=== PATIENT | male | born 1940 | race Caucasian/White ===

== ENCOUNTER 2017-08-22 14:30 | Outpatient (RCR) | payer MEDICARE, BC ==
[~2017-08-22 14:30] MED LIST: ALLO100T70 PO; ASPI-1121 PO; ATOR20TA22 PO; BAKING SODA PO; BUM2 PO; BUME1TAB19 PO; CA C1TAB6 PO; CALC-500 PO; CALC0.2522 PO; DAR100 PO; DOCU-416 PO; FURO-47 PO; GLUC-255 PO; HYDR-4305 PO; IRBE300T11 PO; LOR5/325 PO; MULT-1 PO; NIFE20CA8 PO; OXYB5TAB86 PO; OXYGENHOME INH; PER PO; POTA8TAB45 PO; SODI650T7 PO; ZOLP-350 PO
[2017-08-28] MEDS ORDERED: ATOR20TA65 PO (11:46)
[2017-09-07] MEDS ORDERED: POTA-53 PO (10:19)
[2017-09-07] MEDS ORDERED: DICL100G39 TOP (10:19)
[2017-09-07] MEDS ORDERED: DOCU250C8 PO (10:19)
[2017-09-13] MEDS ORDERED: ZOLP-1 PO (11:15)
== END 2017-09-17 ==
LOC: SPU 14:30
PROVIDERS: ATTEND Internal Medicine
DX: N30.80 Other cystitis without hematuria (principal); N17.9 Acute kidney failure, unspecified
CPT/HCPCS: 51702; A4338

== ENCOUNTER → 2017-09-07 | Outpatient (CLI) | payer MEDICARE, BC ==
[~2017-09-07] MED LIST changes: +ATOR20TA65 PO; +DICL100G39 TOP; +DOCU250C8 PO; +POTA-53 PO
== END ==
LOC: LAB 11:27
PROVIDERS: ATTEND Emergency Medicine
DX: Z12.5 Encounter for screening for malignant neoplasm of prostate (principal); D53.9 Nutritional anemia, unspecified; N18.5 Chronic kidney disease, stage 5
CPT/HCPCS: 36415; 82607; 82746; G0103; 82040; 82247; 82310; 82374; 82435; 82465; 82565; 82947; 83718; 84075; 84132; 84153; 84155; 84295; 84450; 84460; 84478; 84520

== ENCOUNTER → 2017-10-05 | Outpatient (CLI) | payer MEDICARE, BC ==
[~2017-10-05] MED LIST changes: +ZOLP-1 PO
== END ==
LOC: RESP 19:56
PROVIDERS: ATTEND Emergency Medicine
DX: G47.33 Obstructive sleep apnea (adult) (pediatric) (principal); G47.61 Periodic limb movement disorder; G47.36 Sleep related hypoventilation in conditions classified elsewhere; E66.9 Obesity, unspecified

== ENCOUNTER → 2017-11-28 | Outpatient (CLI) | payer MEDICARE, BC ==
[2017-11-28 14:48] LABS: PLATELET COUNT, AUTOMATED 180 K/uL (150-450)
== END ==
LOC: LAB 14:23
PROVIDERS: ATTEND Internal Medicine Nephrology
DX: I12.9 Hypertensive chronic kidney disease with stage 1 through stage 4 chronic kidney disease, or unspecified chronic kidney disease (principal); N18.5 Chronic kidney disease, stage 5; E87.2 Acidosis; R80.9 Proteinuria, unspecified; N13.30 Unspecified hydronephrosis; D63.1 Anemia in chronic kidney disease; M10.9 Gout, unspecified; E61.1 Iron deficiency
CPT/HCPCS: 36415; 82040; 82310; 82374; 82435; 82565; 82947; 83540; 83550; 84100; 84132; 84295; 84520; 84550; 85025

== ENCOUNTER 2017-12-19 14:29 | Outpatient (RCR) | payer MEDICARE, BC ==
[2017-12-10] MEDS: LIDOCAINE/SOD BICARB 8.4% SYR ID PRN (13:14)
[2017-12-10] MEDS: NS(*) 0.9% 100 ML BAG 100 ML IVPB PRN (13:32)
[2017-12-10] MEDS: NS 0.9% IV PRN (13:32)
[2017-12-10] MEDS: IRON SUCROSE IV PRN (13:32)
[2017-12-10 14:23] VITALS: BP 130/72
[2017-12-17] MEDS: IRON SUCROSE IV PRN (13:00)
[2017-12-17] MEDS: NS(*) 0.9% 100 ML BAG 100 ML IVPB PRN (13:00)
[2017-12-17] MEDS: LIDOCAINE/SOD BICARB 8.4% SYR ID PRN (13:00)
[2017-12-17] MEDS: NS 0.9% IV PRN (13:00)
[~2017-12-19 14:29] MED LIST changes: +DEXTROSE 5%(*) 100 ML BAG 100 ML IVPB PRN; +IRON SUCROSE 100 MG/5 ML VIAL IVP ONE
== END 2017-12-24 ==
LOC: SPU 14:29
PROVIDERS: ATTEND Emergency Medicine
DX: E61.1 Iron deficiency (principal); N18.5 Chronic kidney disease, stage 5; I10 Essential (primary) hypertension; N25.81 Secondary hyperparathyroidism of renal origin; E87.2 Acidosis
CPT/HCPCS: 51702; 96365; J1756; J7050

== ENCOUNTER 2018-03-20 14:30 | Outpatient (RCR) | payer MEDICARE, BC ==
[2017-12-10 14:23] VITALS: BP 130/72
[~2018-03-20 14:30] MED LIST changes: -DEXTROSE 5%(*) 100 ML BAG 100 ML IVPB PRN; -IRON SUCROSE 100 MG/5 ML VIAL IVP ONE
[2018-04-08] MEDS ORDERED: HYDR-4305 PO (15:12)
[2018-04-10] MEDS ORDERED: HYDR-4305 PO (08:00)
== END 2018-04-22 ==
LOC: SPU 14:30
PROVIDERS: ATTEND Emergency Medicine
DX: E61.1 Iron deficiency (principal); N18.5 Chronic kidney disease, stage 5; N25.81 Secondary hyperparathyroidism of renal origin; E87.2 Acidosis; I12.9 Hypertensive chronic kidney disease with stage 1 through stage 4 chronic kidney disease, or unspecified chronic kidney disease; Z96.0 Presence of urogenital implants
CPT/HCPCS: 51702

== ENCOUNTER → 2018-04-17 | Outpatient (CLI) | payer MEDICARE, BC ==
[2018-04-17 15:05] LABS: PLATELET COUNT, AUTOMATED 180 K/uL (150-450)
== END ==
LOC: LAB 14:44
PROVIDERS: ATTEND Internal Medicine Nephrology
DX: N18.5 Chronic kidney disease, stage 5 (principal); R80.9 Proteinuria, unspecified
CPT/HCPCS: 36415; 82040; 82310; 82374; 82435; 82565; 82947; 83735; 84100; 84132; 84295; 84520; 85025

== ENCOUNTER → 2018-05-17 | Outpatient (CLI) | payer MEDICARE, BC ==
[~2018-05-17] MED LIST changes: +NYST15CR32 TP
[2018-05-17 15:41] LABS: PLATELET COUNT, AUTOMATED 197 K/uL (150-450)
== END ==
LOC: LAB 15:20
PROVIDERS: ATTEND Internal Medicine Nephrology
DX: Z12.5 Encounter for screening for malignant neoplasm of prostate (principal); E78.5 Hyperlipidemia, unspecified; I10 Essential (primary) hypertension; N18.5 Chronic kidney disease, stage 5
CPT/HCPCS: 85025; G0103; 36415; 82040; 82247; 82310; 82374; 82435; 82465; 82565; 82947; 83718; 84075; 84132; 84153; 84155; 84295; 84450; 84460; 84478; 84520

== ENCOUNTER 2018-06-26 14:30 | Outpatient (RCR) | payer MEDICARE, BC ==
[2017-12-10 14:23] VITALS: BP 130/72
[~2018-06-26 14:30] MED LIST changes: -HYDR-4305 PO; +HYDR-627 PO
[2018-07-15] MEDS ORDERED: HYDR-627 PO (11:43)
== END 2018-07-23 ==
LOC: SPU 14:30
PROVIDERS: ATTEND Emergency Medicine
DX: E61.1 Iron deficiency (principal); N18.5 Chronic kidney disease, stage 5; N25.81 Secondary hyperparathyroidism of renal origin; E87.2 Acidosis; I12.9 Hypertensive chronic kidney disease with stage 1 through stage 4 chronic kidney disease, or unspecified chronic kidney disease; Z96.0 Presence of urogenital implants
CPT/HCPCS: 51702

== ENCOUNTER 2018-09-25 14:30 | Outpatient (RCR) | payer MEDICARE, BC ==
[2017-12-10 14:23] VITALS: BP 130/72
[2018-10-21] MEDS ORDERED: HYDR-627 PO (10:58)
== END 2018-10-22 ==
LOC: SPU 14:30
PROVIDERS: ATTEND Emergency Medicine
DX: E61.1 Iron deficiency (principal); N18.5 Chronic kidney disease, stage 5; N25.81 Secondary hyperparathyroidism of renal origin; E87.2 Acidosis; I12.9 Hypertensive chronic kidney disease with stage 1 through stage 4 chronic kidney disease, or unspecified chronic kidney disease; Z96.0 Presence of urogenital implants; N30.80 Other cystitis without hematuria; N17.9 Acute kidney failure, unspecified
CPT/HCPCS: 51702

== ENCOUNTER → 2018-11-14 | Outpatient (CLI) | payer MEDICARE, BC ==
[2018-11-14 16:04] LABS: PLATELET COUNT, AUTOMATED 197 K/uL (150-450)
== END ==
LOC: LAB 15:26
DX: R80.9 Proteinuria, unspecified (principal); N18.5 Chronic kidney disease, stage 5; E87.2 Acidosis; D63.1 Anemia in chronic kidney disease; N25.81 Secondary hyperparathyroidism of renal origin; E61.1 Iron deficiency; I12.9 Hypertensive chronic kidney disease with stage 1 through stage 4 chronic kidney disease, or unspecified chronic kidney disease
CPT/HCPCS: 36415; 82040; 82247; 82310; 82374; 82435; 82565; 82947; 83735; 83970; 84075; 84132; 84155; 84295; 84450; 84460; 84520; 84550; 85025

== ENCOUNTER 2018-11-21 14:30 | Outpatient (RCR) | payer MEDICARE, BC ==
[2017-12-10 14:23] VITALS: BP 130/72
--- NOTE | 2018-10-25 17:24 | RADIOLOGY IMAGING REPORT ---
[place] [facility] [place] NAME: Mitchel Weiss : 1940 MR: [id number] V: [id number] EXAM DATE: ORDERING PHYSICIAN: NEFTALY REMY TECHNOLOGIST: [place] [facility] [place] Patient: Mitchel Weiss : 1940 Visit/Account:[id number] Date of Sevice: 10/25/2018 Cystogram, and fluoroscopy-guided placement of suprapubic bladder catheter. HISTORY: Neurogenic bladder, suprapubic catheter fell out. Following sterile prep and drape small amount of lidocaine jelly was injected into the suprapubic nish dder tract. A Roper catheter was gently advanced into the tract. The Roper catheter balloon was inf lated with dilute contrast material. Contrast was injected into the Roper catheter opacifying a cont racted urinary bladder which is barely larger than the balloon. Contrast material refluxes into the right ureter and into the urethra. The balloon was deflated and replaced with 8 mL of saline. The F oley was connected to a gravity drainage bag. The patient tolerated the procedure well without compl ications. FLUOROSCOPY TIME: 0.7 minutes. NUMBER OF IMAGES: Four. IMPRESSION: Replacement of Roper catheter into a severely contracted urinary bladder. Results were discussed with Dr. Christiano Kirk at 10/25/2018 5:19 PM. Report Dictated By: Kai Young MD at 10/25/2018 5:15 PM Report E-Signed By: Kai Young MD at 10/25/2018 5:20 PM WSN:[id number]
[~2018-11-21 14:30] MED LIST changes: +IOPAMIDOL 76% 100 ML INFUS BTL 100 ML ONE; +LIDOCAINE 2% 200MG/10ML UROJET ONE
[2018-11-21] MEDS ORDERED: POTA-30 PO (17:51)
[2018-11-23] MEDS ORDERED: CEPH500T7 PO (12:40)
[2018-12-16] MEDS ORDERED: HYDR-627 PO (16:27)
== END 2018-12-16 09:05 | disposition home or self-care (01) ==
LOC: SPU 14:30
PROVIDERS: ATTEND Emergency Medicine
DX: E61.1 Iron deficiency (principal); N18.5 Chronic kidney disease, stage 5; N25.81 Secondary hyperparathyroidism of renal origin; E87.2 Acidosis; I12.9 Hypertensive chronic kidney disease with stage 1 through stage 4 chronic kidney disease, or unspecified chronic kidney disease; Z96.0 Presence of urogenital implants; N30.80 Other cystitis without hematuria; N17.9 Acute kidney failure, unspecified
CPT/HCPCS: 51702; 74430; Q9967

== ENCOUNTER 2018-11-21 15:52 | Observation (INO) | payer MEDICARE, BC ==
[~2018-11-21] VITALS: Ht 172.7 cm; Wt 101.6 kg
[~2018-11-21 15:52] MED LIST changes: -IOPAMIDOL 76% 100 ML INFUS BTL 100 ML ONE; -LIDOCAINE 2% 200MG/10ML UROJET ONE
--- NOTE | 2018-11-21 16:02 | ER Report ---
History and Physical Time Seen By MD: 16:00 HPI/ROS CHIEF COMPLAINT: change manager superpubic catheter HISTORY OF PRESENT ILLNESS: PT has had a superpubic catheter since 2016. Has it changed Monthly. Pt accidentally pulled out his catheter today when changing his clothes. Pt went to cancer center and they were unable to place his superpubic cather "we attempted to exchange but could not get the tube in". Pt is a patient of Dr. Kirk, urology, but Dr. John is covering. Urology is supposed to be meeting patient in emergency room. REVIEW OF SYSTEMS: Constitutional: No fever, no chills. Eyes: No discharge. ENT: No sore throat. Cardiovascular: No chest pain, no palpitations. Respiratory: No cough, no shortness of breath. Gastrointestinal: No abdominal pain, no vomiting. Genitourinary: No hematuria.Superpubic cather came out Musculoskeletal: No back pain. Skin: No rashes. Neurological: No headache. Allergies: Coded Allergies: No Known Drug Allergies (Verified , 11/21/18) Home Meds Active Scripts Hydrocodone Bit/Acetaminophen (NORCO 10-325 TABLET) 1 Each Tablet, 2 EACH PO Q6H PRN for PAIN MDD 6 per day, #150 TAB 0 Refills Prov:NEFTALY REMY MD 11/12/18 NYSTATIN 862556 UNT/ML Topical Cream (NYSTATIN 534939 UNT/ML Topical Cream) 15 Gm Cream..g., 1 WALLY TP BID for 14 Days, #15 GM 0 Refills Prov:JO ANN GRIFFITH APRN PLATING ENGINEER-C 05/08/18 Zolpidem Tartrate (AMBIEN) 5 Mg Tablet, 1 TAB PO QHS, #30 TAB Prov:NEFTALY REMY MD 09/13/17 Atorvastatin Calcium (ATORVASTATIN CALCIUM) 20 Mg Tablet, 1 TAB PO QDAY, #90 TAB 3 Refills Prov:CORRY AGUILAR MD 08/28/17 Reported Medications Diclofenac Sodium 1% Gel (VOLTAREN 1% GEL) 100 Gm Gel..gram., 2 GM TOP 2-3XD PRN for PRN 09/07/17 Docusate Sodium (STOOL SOFTENER) 250 Mg Capsule, 250 MG PO 1-3XD, CAPSULE 09/07/17 Potassium Chloride (POTASSIUM CHLORIDE) 10 Meq Tab.er.prt, 10 MEQ PO BID 1/19/18 Calcitriol (ROCALTROL) 0.25 Mcg Capsule, 0.25 MCG PO DAILY, CAPSULE 02/07/17 Bumetanide (BUMETANIDE) 1 Mg Tablet, 3 MG PO DAILY 2 tabs po every morning 1 tab po every HS 02/07/17 [Baking Soda] No Conflict Check, 0.25 TSP PO DAILY 02/07/17 Allopurinol (ALLOPURINOL) 100 Mg Tablet, 1 TAB PO DAILY, TAB 09/01/13 Ca Carbonate/Vitamin D3/Vit K (CALCIUM + D SOFT CHEWABLE TAB) 1 Each Tab.chew, 1 EACH PO DAILY, TAB.CHEW 09/01/13 Multivitamins W-Minerals/Lut (Centrum Silver Tablet) 1 Tab Tablet, 1 TAB PO 05/15/07 Aspirin (Adult Aspirin) 81 Mg Tab.chew, 81 MG PO DAILY 05/15/07 Past Medical/Surgical History Pmhx: hyperlipid, FÉLIX, 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 Eyes: Pupils equal and round no pallor or injection, EOMI ENT: no pharyngeal erythema or exudates, Mucous membranes are moist, Respiratory: There are no retractions, lungs are clear to auscultation. Cardiovascular: Regular rate and rhythm. pulses are equal and symmetrical Gastrointestinal: Abdomen is soft and non tender, bowel sounds normal, no guarding, no rigidity or rebound, + os for superpubic catheter Neurological: Cranial nerves II-XII grossly intact, no sensory or motor loss Skin: Warm and dry, + erythema around superpubic cather opening secondary to wet and irritated Musculoskeletal: Neck is supple non tender, no vertebral tenderness Extremities are nontender, nonswollen and have full range of motion. DIFFERENTIAL DIAGNOSIS: After history and physical exam differential diagnosis was considered for insertion of superpubic catheter Medical Decision Making ED Course/Re-evaluation ED Course DR. John in ED and took over patient care. Decision to Disposition Date: Nov 21, 2018 Decision to Disposition Time: 16:15 Depart Departure Latest Vital Signs Vital Signs Date Time Temp Pulse Resp B/P (MAP) Pulse Ox O2 Delivery O2 Flow Rate FiO2 11/21/18 16:08 98.2 92 20 180/89 90 Room Air Impression: Primary Impression: Suprapubic catheter dysfunction Condition: Stable Disposition: Admitted from ER Referrals: NEFTALY REMY MD (PCP) Problem Qualifiers Primary Impression: Suprapubic catheter dysfunction Encounter type: initial encounter Qualified Codes: T83.010A - Breakdown (mechanical) of cystostomy catheter, initial encounter RADHA PETERSEN DO Nov 21, 2018 16:02
[2018-11-21 17:51] VITALS: BP 138/78
[2018-11-21] MEDS ORDERED: POTA-30 PO (17:51)
[2018-11-21 18:15] LABS: PLATELET COUNT, AUTOMATED 175 K/uL (150-450)
[2018-11-21] MEDS: NS(*) 0.9% 1000 ML BAG 1,000 ML IV PRN (18:32)
--- NOTE | 2018-11-21 19:26 | HISTORY AND PHYSICAL ---
DATE OF ADMISSION: November 21, 2018 CHIEF COMPLAINT Inability to place suprapubic catheter. HISTORY OF PRESENT ILLNESS Patient is a patient with chronic kidney disease who has a chronic suprapubic catheter and was at the Outpatient Procedures to have his catheter changed. However, they were unsuccessful, and he sought evaluation in the Emergency Room. The patient states he has had a chronic suprapubic catheter for the past five years. He said it was placed for "chronic cystitis." The patient does have a history of stage 5 chronic kidney disease, who is followed by Dr. Campbell. 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 He last saw Dr. Campbell yesterday and was noted to have a creatinine of 4.8 with a GFR below 15. He has had an AV fistula placed in anticipation for hemodialysis in the future. The patient states that his suprapubic catheter has been changed approximately once every four weeks for the past several years. For the past three months, he has noted the catheter has fallen out with the balloon inflated, and he has noted increased leaking around the catheter. He states that he does not void spontaneously per urethra. He denies abdominal pain, fever, chills, or hematuria. I attempted to replace his catheter. He was noted to have a patulous suprapubic tract leading down to a very small bladder. Any size catheter would be introduced into the tract; however, inflating the balloon would just push the catheter right back out of the tract. I was able to insert a Roper catheter per urethra, but just in placing that with a partially filled balloon, the balloon migrated up out of the SP tract. I had to deflate the balloon, pulled it back down to approximately the bladder neck area, and inflate there. The plan will now be to admit the patient for intravenous antibiotics and observation for his urinary output. PAST MEDICAL HISTORY 1. Gout. 2. Hyperlipidemia. 3. Hyperphosphatemia. 4. Hypertension. 5. Metabolic acidosis. 6. Ophthalmic artery occlusion. 7. Osteoarthritis. 8. Proteinuria. 9. Secondary hyperparathyroidism. 10. History of urinary tract infection. 11. Venous insufficiency with bilateral lower extremity edema. 12. Nephrolithiasis. 13. Obesity. 14. What appeared to be chronic lower urinary tract infectious disease with questionable obstructive uropathy with hydronephrosis treated in the past in [place]. He apparently had bilateral nephrostomy tubes for a short time, followed by Roper catheter placement, and ultimately suprapubic placement five years ago. PAST SURGICAL HISTORY 1. SP tube placement. 2. Colonoscopy. 3. Tonsillectomy. 4. AV fistula placement. ALLERGIES No known drug allergies. CURRENT MEDICATIONS 1. Allopurinol. 2. Aspirin. 3. Lipitor. 4. Bumex. 5. Calcitriol. 6. Colace. 7. [place]. 8. K-Dur. 9. Multivitamins. SOCIAL HISTORY Patient lives in [place], [place]. He is a former smoker. REVIEW OF SYSTEMS Patient denies chest pain, productive cough, nausea, vomiting, fever, chills, liver disease, or known bleeding disorder. PHYSICAL EXAMINATION GENERAL: Patient is an obese white male in no acute distress. HEENT: Normocephalic, atraumatic. CHEST: Clear to auscultation bilaterally. CARDIOVASCULAR: Regular rate and rhythm. ABDOMEN: Soft, obese. No masses are palpated. His SP tube site is patulous on the skin, measuring approximately 1.5 cm at the opening. It is right in his lower skin crease in the midline. He has some skin breakdown/chronic irritation, what appears to be from leakage of urine primarily in the midline and to the right side. He has no abdominal pain to palpation. GENITOURINARY: Normal-appearing penis and normal meatus. His testes are descended bilaterally without masses. EXTREMITIES: He has 3+ edema bilaterally from mid thighs down with some chronic venous stasis ulcer changes in the skin. NEUROLOGIC: Nonfocal. IMPRESSION Mr. Weiss has multiple medical issues with chronic renal insufficiency and a history of chronic suprapubic tube placement for what appears to be a small, nonfunctioning bladder over the past five years. Most recently, it appears that this tract has eroded to a larger, more patulous size, and with a small capacity bladder, he is unable to retain a suprapubic catheter in place. I was able to successfully place a Roper catheter from below at this time. PLAN Given the history of extensive manipulation of his SP tube tract and urethra, we will admit him for intravenous hydration and antibiotics and broad-spectrum coverage. We will also recheck his labs and send a urine culture. As far as his long-term management for his bladder and bladder drainage, we will address this after he becomes more stabilized. It appears unlikely that the suprapubic tract would close any time soon given its patulous nature, but we may attempt to let this close to a smaller diameter and then retry to place a catheter in the future. First is just to continue the Roper catheter in place until he proceeds to dialysis. PAIGE
--- NOTE | 2018-11-21 19:56 | OPERATIVE REPORT 1 ---
EVENT DATE: November 21, 2018 SURGEON: Arnel John MD ANESTHESIOLOGIST: None. ANESTHESIA: None. PREOPERATIVE DIAGNOSIS Inability to place a suprapubic catheter. POSTOPERATIVE DIAGNOSIS Inability to place a suprapubic catheter. PROCEDURES PERFORMED 1. Attempted suprapubic tube placement times multiple attempts. 2. Urethral Roper catheter placement. DRAINS 16-Haitian Silastic Roper catheter per urethra. FINDINGS Patulous suprapubic tract with extremely small capacity bladder. COMPLICATIONS None. CONDITION Patient stable at conclusion of procedure. STATEMENT OF MEDICAL NECESSITY Patient is an 78-year-old white male with a five-year history of suprapubic catheter placement for a small capacity bladder, who states over the past three months his catheter has fell out several times with the balloon inflated. He was seen in Special Procedures today, and they were unable to replace his catheter, and he came to the Emergency Room for evaluation. Physical exam revealed a patulous opening to his suprapubic site. He had some skin changes around the site and on the right abdomen consistent with chronic irritation from leaked urine. His abdominal exam was otherwise benign. DESCRIPTION OF PROCEDURE PERFORMED Procedure was performed in the Emergency Room on the table. He was placed supine on the table. He was prepped sterilely for suprapubic placement. An 18- Haitian catheter was used. It inserted easily into the large opening of the suprapubic tract and advanced approximately 2 inches down where it could not be advanced further. The balloon was inflated with 12 mL; however, after approximately 5 mL, the balloon and catheter were extruded out the suprapubic tract and would not stay in place. The balloon was deflated, and the catheter was again placed trying to attempt to coil the catheter in the bladder. A second attempt was tried. This also would not stay in place, but would extrude out the patulous SP tract. A smaller 14 catheter was again used with similar results. The patient states that he had recently an 18 and a 20 also tried. Digital exam of the tract revealed I could easily introduce my index finger down toward what appeared to be the level of the bladder. It appeared small and extremely contracted. There was no appreciable space identified as a true bladder volume. At this point, it was decided to place a urethral catheter. The patient was reprepped and draped, and a 16-Haitian Silastic catheter was introduced and slid easily up to the level of the bladder. I inflated the balloon, and again this also migrated up out of the SP tube tract to the skin level. The balloon was deflated. It was pulled back down to the approximate level of the bladder neck where it was slowly inflated with 12 mL, and this was placed to gravity drainage. After approximately five minutes, a small amount of urine was seen emanating down the tube. The patient denied any discomfort from the current catheter placement. At this point, a sterile dressing with antibiotic ointment was placed along the SP tract and skin, and the plan will be to admit the patient to the hospital for observation. PAIGE
[2018-11-21] MEDS: APAP/HYDROCODONE 325/10 TAB PO PRN (20:37)
[2018-11-21] MEDS: ceFAZolin(*) 1 GM VIAL 1 GM in NS(*) 0.9% 100 ML MINI-BAG 100 ML IV SCH (20:39)
[2018-11-21 20:43] VITALS: BP 137/78
[2018-11-21] MEDS: DOCUSATE SODIUM 100 MG CAP PO SCH ×2 (21:00→22:09)
--- NOTE | 2018-11-21 21:05 | Hospitalist Consultation ---
History of Present Illness Requesting Physician Alvaro Reason for Consult Medication management History of Present Illness 78yo with chronic suprapubic catheter, CKD and chronic pain who was admitted for suprapubic catheter dysfunction. He denies cp/sob/NELSON/changes in edema. His OA pain is flared secondary to not taking his vicodin most of the day. 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 (4) Obesity Status: Chronic (5) CKD (chronic kidney disease), stage V Status: Chronic (6) Arthritis of both knees Status: Chronic Home Meds Active Scripts Hydrocodone Bit/Acetaminophen (NORCO 10-325 TABLET) 1 Each Tablet, 2 EACH PO Q6H PRN for PAIN MDD 6 per day, #150 TAB 0 Refills Prov:KARY LEON MD 11/12/18 Atorvastatin Calcium (ATORVASTATIN CALCIUM) 20 Mg Tablet, 1 TAB PO QDAY, #90 TAB 3 Refills Prov:CORRY AGUILAR MD 08/28/17 Reported Medications Potassium Chloride (KLOR-CON M10) 10 Meq Tab.er.prt, 30 MEQ PO QDAY 11/21/18 Diclofenac Sodium 1% Gel (VOLTAREN 1% GEL) 100 Gm Gel..gram., 2 GM TOP 2-3XD PRN for PRN 09/07/17 Docusate Sodium (STOOL SOFTENER) 250 Mg Capsule, 250 MG PO 1-3XD, CAPSULE 09/07/17 Calcitriol (ROCALTROL) 0.25 Mcg Capsule, 0.25 MCG PO DAILY, CAPSULE Only takes Sunday through Sunday02/07/17 Bumetanide (BUMETANIDE) 1 Mg Tablet, 3 MG PO DAILY 2 tabs po every morning 1 tab po every HS 02/07/17 [Baking Soda] No Conflict Check, 0.25 TSP PO DAILY 02/07/17 Allopurinol (ALLOPURINOL) 100 Mg Tablet, 1 TAB PO DAILY, TAB 09/01/13 Ca Carbonate/Vitamin D3/Vit K (CALCIUM + D SOFT CHEWABLE TAB) 1 Each Tab.chew, 1 EACH PO DAILY, TAB.CHEW 09/01/13 Multivitamins W-Minerals/Lut (Centrum Silver Tablet) 1 Tab Tablet, 1 TAB PO 05/15/07 Aspirin (Adult Aspirin) 81 Mg Tab.chew, 81 MG PO DAILY 05/15/07 Discontinued Scripts NYSTATIN 904010 UNT/ML Topical Cream (NYSTATIN 011591 UNT/ML Topical Cream) 15 Gm Cream..g., 1 WALLY TP BID for 14 Days, #15 GM 0 Refills Prov:NACHOJO ANN SUSANA SEED CLEANING MACHINE OPERATOR-C 05/08/18 Zolpidem Tartrate (AMBIEN) 5 Mg Tablet, 1 TAB PO QHS, #30 TAB Prov:KARY LEON MD 09/13/17 Allergies: Coded Allergies: No Known Drug Allergies (Verified , 11/21/18) Patient History: FH: alcoholism FATHER, , Age:67 FH: breast cancer BROTHER OR SISTER FH: hypertension BROTHER OR SISTER Hx Smoking: Yes (Quit at 44 years old, smoked for 25 years) Smoking Status: Former Smoker Exposure to Second Hand Smoke?: No Caffeine Intake: Soda Caffeine/Cups Per Day: 2 glasses/day Hx Alcohol Use: No Alcohol Used: Wine Hx Substance Use Disorder: No Social Drug Use: Currently Social Drugs: Prescription Drugs Review of Systems All Systems Reviewed/Normal: Yes, Except as Noted Exam Vital Signs Vital Signs Date Time Temp Pulse Resp B/P (MAP) Pulse Ox O2 Delivery O2 Flow Rate FiO2 11/21/18 17:51 98.5 92 16 138/78 (98) 88 Room Air General Appearance: Alert, Awake, No Acute Distress ENT: Moist Mucous Membranes Cardiovascular: Regular Rate and Rhythm Respiratory: Clear to Auscultation GI: Abd Soft and Non-Tender (Dressing over suprapubic tract) : Other (Roper catheter in penis) Extremities: Edema (2+ pitting to thighs) Medical Decision Making Data Points Result Diagram: 11/21/187 11/21/18 165 Item Value Date Time Creatinine 4.80 mg/dl *H 11/14/18 1549 Creatinine 5.50 mg/dl *H 11/21/18 1657 Total Bilirubin 0.4 mg/dl 11/21/18 1657 Aspartate Amino Transf (AST/SGOT) 27 U/L 11/21/18 165 Alanine Aminotransferase (ALT/SGPT) 9 U/L 11/21/18 1657 Alkaline Phosphatase 106 U/L 11/21/187 Neutrophils (%) (Auto) 74.0 % H 11/21/18 1657 Lymphocytes (%) (Auto) 11.4 % L 11/21/18 1657 Monocytes (%) (Auto) 9.1 % 11/21/18 1657 Eosinophils (%) (Auto) 3.3 % 11/21/18 1657 Urine Leukocyte Esterase Moderate H 11/21/18 1700 Urine RBC 1170 /HPF 11/21/18 1700 Urine WBC 215 /HPF 11/21/18 1700 Urine Squamous Epithelial Cells None /LPF 11/21/18 1700 Assessment and Plan Problems: (1) Suprapubic catheter dysfunction Status: Acute Assessment & Plan: Please see Dr. John's notes. The patient now has a Roper catheter in the urethra and a bandage over the suprapubic tract. The patient is afebrile and has a normal WBC, but has pyuria and neutrophilia. The patient is on renally dose Ancef, per Dr. John's orders. (2) TOR (acute kidney injury) Status: Chronic Assessment & Plan: Creatinine increased to 5.5 from 4.8 about a week ago. He is getting hydration and now has an urinary catheter. Holding Bumex and ASA. Follow creatinine. 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 Campbell. Continue chronic sodium bicarbonate and calcitriol. If renal function doesn't improve from a creatinine of 5.5, then need to consider starting HD. (4) Arthritis of both knees Status: Chronic Assessment & Plan: Continue chronic Vicodin. Holding topical diclofenac. (5) Gout Status: Chronic Assessment & Plan: Holding chronic allopurinol secondary to worsening renal function. Copies to: KARY LEON MD; KAMILLE CAMPBELL MD; MUSTAPHA JOHN MD ; Venous Thromboembolism Antithrombotics Is Pt On Any Antithrombotics?: No Exam Sepsis Risk: No Definite Risk Problem Qualifiers (1) Suprapubic catheter dysfunction: Encounter type: initial encounter Qualified Codes: T83.010A - Breakdown (mechanical) of cystostomy catheter, initial encounter JOE CARDONA MD Nov 21, 2018 21:05
[2018-11-22 01:27] VITALS: BP 111/65
[2018-11-22] MEDS: APAP/HYDROCODONE 325/10 TAB PO PRN ×6 (01:30→21:33)
[2018-11-22 04:23] VITALS: BP 125/69
[2018-11-22 06:07] LABS: PLATELET COUNT, AUTOMATED 141 K/uL (150-450)
[2018-11-22 07:53] VITALS: BP 116/69
[2018-11-22 08:54] VITALS: Ht 172.7 cm; Wt 101.6 kg
[2018-11-22] MEDS: DOCUSATE SODIUM 100 MG CAP PO SCH ×2 (09:00→21:00)
[2018-11-22] MEDS ORDERED: ALLOPURINOL 100 MG TAB PO SCH (09:00)
[2018-11-22] MEDS: ATORVASTATIN 10 MG TAB PO SCH (09:32)
[2018-11-22] MEDS: ceFAZolin(*) 1 GM VIAL 1 GM in NS(*) 0.9% 100 ML MINI-BAG 100 ML IV SCH (09:32)
[2018-11-22] MEDS: CALCITRIOL 0.25 MCG CAP PO SCH (09:33)
[2018-11-22] MEDS: SODIUM BICARBONATE 650 MG TAB PO SCH (09:33)
[2018-11-22] MEDS: ASPIRIN 81 MG ENTERIC COATED PO SCH (09:33)
--- NOTE | 2018-11-22 10:49 | Medical Nutrition Therapy ---
Nutrition Anthropometrics Height (Inches): 68.00 Height (Calculated Centimeters: 172.796906 Weight (Pounds): 224 Weight (Calculated Kilograms): 101.605 Jose Nutrition Score: Adequate Jose Nutrition Risk Score: 19 Dietary Referral Nutrition Risk Factors: Nutrition Risk Comment: Physical Findings Physical Appearance: Obese BMI 30-39 Skin Appearance Skin Appearance: Edema Edema Location Modifier: Both Edema Location: Lower Extremity Type of Edema: Degree of Edema: 1+ Gastrointestinal Symptoms GI Symtoms: Tube Present: Bowel Sounds: Recent Bowel Pattern: Stool Characteristics: Nutritional Diagnosis Nutritional Risk Acuity 2: Chronic Renal Failure Nutritional Risk Acuity 3: ST I/II Pressure Ulcer Past Medical History: Hx hyperlipidemia, FÉLIX, CKD-stage 4, arthritis, obesity. Nutritional Acuity: 2-Moderate Nutrition Diagnosis: Decreased Nutrient Needs Nutrition Etiology: Physiological Causes Nutrition Problem/Etiology/Sym: Decreased nutrient needs (sodium, potassium, and phosphorus, fluid) related to physiological causes as evidenced by CKD stage 4. Energy Requirement: 2231 (MSJ, 1.1 TEF, 1.2 AF) Adjusted Energy Requirement Re: 1731 (-500kcal) Protein Requirement: 56 (0.8g AA/kg of IBW) Fluid Requirement: 1731 (1ml/kcal of adjusted energy intake.) Diet Type: Diet as Tolerated LINH/REG Nutrition Monitoring & Eval Nutrition Goals: Eat 50-100% Meal RD Patient Assessment Time: [address] Assessment Type: RD Assessment Patient Nutrition Acuity: 2-Moderate Follow Up Date: Nov 27, 2018 Nutritional Comment: 11/22: Pt admitted for suprapubic catheter dysfunction, TOR, CKD-stage 4, gout. Hx hyperlipidemia, FÉLIX, CKD-stage 4, arthritis, obesity. Pt has pressure ulcer on lower abdomen. Pt has elevated BUN (38-41), creatinine (4.8-5.5), RBG (113), total protein (8.7), decreased albumin (3.3) levels. Pt on a LINH diet with no intake reported. Encourage adequate protein to encourage pressure ulcer healing but not excessive because of CKD-stage 4. Continue to monitor. -AMISHA DONOHUE Nov 22, 2018 09:06
--- NOTE | 2018-11-22 11:29 | Hospitalist Progress Note ---
Subjective Progress Notes Subjective 78M admitted for revision of catheter. MITCH overnight, Cr improved. From medicine perspective is stable for discharge if cleared by primary. Physical Exam Vital Signs Date Time Temp Pulse Resp B/P (MAP) Pulse Ox O2 Delivery O2 Flow Rate FiO2 11/22/18 08:14 89 11/22/18 08:06 Room Air 11/22/18 07:53 98.2 74 18 116/69 (85) 1.5 Intake and Output 11/22/18 07:00 Intake Total 100 ml Output Total 915 ml Balance -815 ml Intake IV Total 100 ml Output Urine Total 915 ml General Appearance: Alert, Awake Neuro: No Gross deficits ENT: Normal Cardiovascular: Normal Rhythm & Peripheral Pulses Respiratory: No Respiratory Distress : Other (+ catheter) Result Diagram: 11/22/1852811/22/18528 Assessment and Plan Problems: (1) Suprapubic catheter dysfunction Status: Acute Assessment & Plan: Please see Dr. John's notes. The patient now has a Roper catheter in the urethra and a bandage over the suprapubic tract. The patient is afebrile and has a normal WBC, but has pyuria and neutrophilia. The patient is on renally dose Ancef, per Dr. John's orders. 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 He is getting hydration and now has an urinary catheter. Holding Bumex and ASA. Cr improved to baseline, stable. 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 Campbell. Continue chronic sodium bicarbonate and calcitriol. Acute bump in Cr improved with catheter revision and IV fluids (4) Arthritis of both knees Status: Chronic Assessment & Plan: Continue chronic Vicodin. Holding topical diclofenac. (5) Gout Status: Chronic Assessment & Plan: Holding chronic allopurinol secondary to worsening renal function. Exam Sepsis Risk: No Definite Risk Problem Qualifiers (1) Suprapubic catheter dysfunction: Encounter type: initial encounter Qualified Codes: T83.010A - Breakdown (mechanical) of cystostomy catheter, initial encounter LATRICE GUO DO Nov 22, 2018 11:29
[2018-11-22 12:12] VITALS: BP 123/78
--- NOTE | 2018-11-22 15:01 | OPERATIVE REPORT 1 ---
EVENT DATE: November 22, 2018 SURGEON: Arnel John MD ANESTHESIOLOGIST: None. ANESTHESIA: None. PREOPERATIVE DIAGNOSIS Malfunctioning suprapubic catheter, status post removal with current indwelling Roper. POSTOPERATIVE DIAGNOSIS Malfunctioning suprapubic catheter, status post removal with current indwelling Roper. PROCEDURES PERFORMED 1. 16-Icelandic suprapubic tube placement via suprapubic tract. 2. Removal of urethral Roper. ESTIMATED BLOOD LOSS Minimal. DRAINS 16-Icelandic Silastic suprapubic catheter with 10 mL in the balloon. COMPLICATIONS None. CONDITION Patient is stable at the conclusion of the procedure. STATEMENT OF MEDICAL NECESSITY Patient is an 78-year-old white male with an approximately five-year history of indwelling suprapubic catheter, who over the past three months has had several episodes of the catheter falling out with the balloon inflated. I saw him in the Emergency Room yesterday. I was unable to place a suprapubic catheter which would stay in place secondary to the patulous nature of his tract. The catheter would be placed; however, upon inflating the balloon, it would migrate from the bladder up the tract out the skin. I was able to put in a Roper catheter, which has been working well over the past 24 hours. Physical exam this afternoon reveals the tract to appear to be significantly smaller in size. After discussion with the patient about options, we will attempt to place a SP tube today before the tract completely closes. DESCRIPTION OF PROCEDURE PERFORMED The procedure was done in the patient's hospital room with him supine on the bed. He was then prepped and draped sterilely from the suprapubic site down to the meatus. At this point, the balloon on the Roper catheter was deflated; however, the catheter was left in place. A 16-Icelandic Silastic Roper catheter was advanced into the suprapubic tract, which appeared to be significantly snugger than yesterday, and advanced down approximately 2 inches where resistance was encountered. The balloon was inflated with 10 mL. At this point, both the urethral Roper catheter and the suprapubic catheter were irrigated with 10 mL of saline and had a good flow of irrigation from one catheter to the other. Therefore, at this point, the urethral catheter was removed. The SP catheter was placed to gravity bag drainage. A sterile dressing with some antibiotics was placed along the SP site. The catheter was taped to the lower abdomen right at the suprapubic site and then secured to the leg. Condition at the conclusion of the procedure was stable. PLAN We will continue to monitor the patient's urine output over the next 12 to 24 hours and check his final urine culture results. If he is having good drainage, and the catheter is remaining in place, we will discharge him home in the near future. PAIGE
[2018-11-22 15:54] VITALS: BP 121/64
[2018-11-22 19:07] VITALS: BP 117/67
[2018-11-22] MEDS: ceFAZolin(*) 1 GM VIAL 1 GM in NS(*) 0.9% 100 ML ADDVANT BAG 100 ML IV SCH (21:33)
[2018-11-22] MEDS: PATIENT'S OWN MED PO SCH (21:34)
[2018-11-23 00:20] VITALS: BP 120/67
[2018-11-23] MEDS: APAP/HYDROCODONE 325/10 TAB PO PRN ×3 (01:45→11:01)
[2018-11-23 02:47] VITALS: BP 119/68
[2018-11-23 07:01] VITALS: BP 122/70
[2018-11-23] MEDS: DOCUSATE SODIUM 100 MG CAP PO SCH (09:00)
[2018-11-23] MEDS: NS(*) 0.9% 1000 ML BAG 1,000 ML IV PRN (09:03)
[2018-11-23] MEDS: SODIUM BICARBONATE 650 MG TAB PO SCH (09:03)
[2018-11-23] MEDS: ceFAZolin(*) 1 GM VIAL 1 GM in NS(*) 0.9% 100 ML ADDVANT BAG 100 ML IV SCH (09:04)
[2018-11-23] MEDS: PATIENT'S OWN MED PO SCH (09:04)
[2018-11-23] MEDS: CALCITRIOL 0.25 MCG CAP PO SCH (09:04)
[2018-11-23] MEDS: ATORVASTATIN 10 MG TAB PO SCH (09:04)
[2018-11-23] MEDS: ASPIRIN 81 MG ENTERIC COATED PO SCH (09:04)
[2018-11-23 10:56] VITALS: BP 119/72
[2018-11-23] MEDS ORDERED: CEPH500T7 PO (12:40)
--- NOTE | 2018-11-23 20:58 | DISCHARGE SUMMARY ---
DATE OF ADMISSION: November 21, 2018 DATE OF DISCHARGE: November 23, 2018 PRIMARY DIAGNOSIS Suprapubic tube malfunction with inability to replace. HISTORY OF PRESENT ILLNESS Patient is an 78-year-old white male with a chronic SP tube for the past five years who had noted increasing incidence of the catheter falling out with the balloon inflated over the past three months. [facility] was seen [facility] for regular catheter change, and they were unsuccessful. He presented to the Emergency Room for further evaluation. SUMMARY OF HOSPITAL COURSE Patient was evaluated in the Emergency Room. At that time, it became evident that the patient had a significantly patulous suprapubic tract that was unable to hold the suprapubic tube in place with the balloon inflated given his extensively small, contracted bladder any time the balloon would be inflated in the area of least resistance. It was otherwise a healthy tract. Therefore, a Roper catheter was placed per urethra, and the patient was admitted to the hospital on the 21 of November. He was started on Ancef empirically. A urine culture and labs were obtained, and the hospitalist was consulted for his other underlying medical issues including chronic renal insufficiency. Upon admission, the patient's creatinine was a little over 5. The following morning, the patient's urine remained clear. He was afebrile, and his labs were stable with a decreased in creatinine down to 4.8, which is his baseline. The following afternoon of the , inspection revealed that the suprapubic tract appeared to have contracted somewhat, and therefore, I attempted to place a 16- Indonesian Silastic Roper catheter. This was successful. The balloon was inflated with 10 mL of fluid and remained in place. His urethral catheter was removed. He did well overnight, and the following morning, his catheter continued to drain well without leakage from around the SP site or the meatus. He was deemed ready for discharge. His urine culture was currently showing no growth. CONDITION AT TIME OF DISCHARGE Stable. ACTIVITIES Ad basilio. DIET Regular. MEDICINES Patient is to continue his prior medicines. He is also given a prescription for Keflex 500 mg once every 12 hours for three days. FOLLOWUP The plan will be to have the patient follow up with Dr. Kirk in one to two weeks and to keep his followup for his Roper catheter change. PAIGE
== END 2018-11-23 12:41 | disposition home or self-care (01) ==
LOC: ER 16:07 → MED 16:52 → INTOOBSV 16:52
PROVIDERS: ADMIT Urology; ATTEND Urology
DX: T83.010A Breakdown (mechanical) of cystostomy catheter, initial encounter (principal); N18.5 Chronic kidney disease, stage 5; E78.5 Hyperlipidemia, unspecified; N17.9 Acute kidney failure, unspecified; M1A.9XX0 Chronic gout, unspecified, without tophus (tophi); M17.0 Bilateral primary osteoarthritis of knee
CPT/HCPCS: 36415; 51702; 81001; 85025; 87088; 99284; A4338; A9270; G0378; J0690; J7030; 82040; 82247; 82310; 82374; 82435; 82565; 82947; 84075; 84132; 84155; 84295; 84450; 84460; 84520

== ENCOUNTER 2019-02-19 14:30 | Outpatient (RCR) | payer MEDICARE, BC ==
[2018-11-22 08:54] VITALS: BMI 34.1
--- NOTE | 2018-12-16 16:40 | RADIOLOGY IMAGING REPORT ---
FACILITY[place] [facility] [place] NAME: Mitchel Weiss : 1940 MR: [id number] V: [id number] EXAM DATE: ORDERING PHYSICIAN: CORRY VIDES TECHNOLOGIST: Location: [facility] [place] Patient: Mitchel Weiss : 1940 Visit/Account:[id number] Date of Sevice: 12/16/2018 Exam type: CYSTOGRAM History: Neurogenic bladder Comparison: Cystogram October 25, 2018. Findings: The cystogram was performed by Dr. Vides. Small amount contrast is noted within the severely contrac meena urinary bladder. There is vesicoureteral reflux into both kidneys and a small amount of reflux i nto the urethra. Existing suprapubic catheter was removed and subsequently replaced with a new sujatha ter. Small amount of contrast is noted in the severely contracted bladder. Fluoroscopy was not perf ormed IMPRESSION: 1. As above Report Dictated By: Bette Rausch MD at 12/16/2018 4:29 PM Report E-Signed By: Bette Rausch MD at 12/16/2018 4:35 PM WSN:[email or web address]
[~2019-02-19 14:30] MED LIST changes: -BUME1TAB19 PO; +BUME1TAB21 PO; +BUME2TAB17 PO; +CEPH500T7 PO; +POTA-30 PO
[2019-03-17] MEDS ORDERED: HYDR-627 PO (11:29)
== END 2019-03-16 ==
LOC: SPU 14:30
DX: N31.8 Other neuromuscular dysfunction of bladder (principal)
CPT/HCPCS: 51702; 74430